=== PATIENT | female | born 1980 | race Caucasian/White ===

== ENCOUNTER 2017-01-17 19:55 | Emergency (ER) | payer SELFPAY ==
[~2017-01-17] VITALS: Ht 165.1 cm; Wt 83.0 kg
[~2017-01-17 19:55] MED LIST: NITR100C62 PO
[2017-01-17 20:27] LABS: BILIRUBIN,URINE NEGATIVE (NEG); GLUCOSE,URINE NEGATIVE (NEG); NITRITE,URINE NEGATIVE (NEG); PH,URINE 6.5; PROTEIN,URINE NEGATIVE (NEG-TRACE)
[2017-01-17] MEDS ORDERED: ONDANSETRON ODT 4 MG TAB.RAPDIS. PO ONE (20:30)
--- NOTE | 2017-01-17 20:35 | PHYS DOC ---
Past Medical History Past Medical History: No Pertinent History Past Surgical History: Alcohol Use: None Drug Use: None Adult General Chief Complaint Chief Complaint: ABDOMINAL PAIN HPI HPI Patient is a 36 year old female with history of UTIs and kidney infection who presents today with mild left flank pain radiating to the left lower abdomen that began yesterday. Patient is also complaining of nausea with no vomiting. Denies any fever. Review of Systems Review of Systems Constitutional: Denies fever or chills [] Eyes: Denies change in visual acuity, redness, or eye pain [] HENT: Denies nasal congestion or sore throat [] Respiratory: Denies cough or shortness of breath [] Cardiovascular: No additional information not addressed in HPI [] GI: Reports nausea, denies vomiting, bloody stools or diarrhea [] : Left flank pain radiating to the left abdomen. Musculoskeletal: Denies back pain or joint pain [] Integument: Denies rash or skin lesions [] Neurologic: Denies headache, focal weakness or sensory changes [] All other systems were reviewed and found to be within normal limits, except as documented in this note. Current Medications Current Medications Current Medications Medications (Trade) Dose Ordered Sig/[place] Start Time Stop Time Status Last Admin Dose Admin Acetaminophen (Tylenol) 650 mg 1X ONCE 01/17/17 21:30 01/17/17 21:31 DC 01/17/17 21:44 650 MG Ondansetron HCl (Zofran Odt) 4 mg 1X ONCE 01/17/17 20:30 01/17/17 20:31 DC 01/17/17 20:40 4 MG Allergies Allergies Allergies Coded Allergies Type Severity Reaction Last Updated Verified naproxen Allergy Intermediate 06/30/15 Yes Physical Exam Physical Exam Constitutional: Well developed, well nourished, no acute distress, non-toxic appearance. [] HENT: Normocephalic, atraumatic, bilateral external ears normal, oropharynx moist, no oral exudates, nose normal. [] Eyes: PERRLA, EOMI, conjunctiva normal, no discharge. [] Neck: Normal range of motion, no tenderness, supple, no stridor. [] Cardiovascular:Heart rate regular rhythm, no murmur [] Lungs & Thorax: Bilateral breath sounds clear to auscultation [] Abdomen: Bowel sounds normal, soft, no tenderness, no masses, no pulsatile masses. [] Skin: Warm, dry, no erythema, no rash. [] Back: No tenderness, no CVA tenderness. [] Extremities: No tenderness, no cyanosis, no clubbing, ROM intact, no edema. [] Neurologic: Alert and oriented X 3, normal motor function, normal sensory function, no focal deficits noted. [] Psychologic: Affect normal, judgement normal, mood normal. [] Current Patient Data Vital Signs Vital Signs Date Time Temp Pulse Resp B/P (MAP) Pulse Ox O2 Delivery O2 Flow Rate FiO2 01/17/17 20:10 98.0 86 16 136/65 (88) 97 Room Air 98.0 Lab Values Laboratory Tests Test 01/17/17 20:08 01/17/17 20:12 Urine Collection Type Unknown Urine Color Yellow Urine Clarity Cloudy Urine pH 6.5 Urine Specific [place] >=1.030 Urine Protein Negative mg/dL (NEG-TRACE) Urine Glucose (UA) Negative mg/dL (NEG) Urine Ketones (Stick) 15 mg/dL (NEG) Urine Blood Negative (NEG) Urine Nitrite Negative (NEG) Urine Bilirubin Negative (NEG) Urine Urobilinogen Dipstick 1.0 mg/dL (0.2 mg/dL) Urine Leukocyte Esterase Trace (NEG) Urine RBC Rare /HPF (0-2) Urine WBC Occ /HPF (0-4) Urine Squamous Epithelial Cells Many /LPF Urine Bacteria Many /HPF (0-FEW) Urine Mucus Marked /LPF POC Urine HCG, Qualitative Hcg negative (Negative) EKG EKG [] Radiology/Procedures Radiology/Procedures []PROCEDURE: CT ABDOMEN PELVIS WO CONTRAST CT ABDOMEN PELVIS WO CONTRAST dated 01/17/2017 9:40 PM Indication:..severe left flank pain x 2 days, no priors. Comparison: No comparison is available. Technique: Contiguous axial imaging of the abdomen and pelvis performed without the administration of IV or oral contrast. One or more of the following individualized dose reduction techniques were utilized for this examination: 1. Automated exposure control 2. Adjustment of the mA and/or kV according to patient size 3. Use of iterative reconstruction technique Findings: Limited images of lung bases show patchy increased density in the right lower lobe posterior medially on image 1. Heart size within normal limits. No pleural or pericardial effusion. Solid abdominal viscera not well evaluated in the absence of contrast material. No apparent attenuation abnormality of the liver or spleen. Pancreas, adrenal glands, gallbladder and kidneys are unremarkable. No stone or hydronephrosis. Unopacified GI tract is normal in caliber and contour. No focal bowel wall thickening. No inflammatory changes in the mesentery. The appendix is not clearly identified. No ascites or lymphadenopathy. Images of pelvis show nondistended urinary bladder. Uterus and adnexa are unremarkable. Trace amount of free pelvic fluid. No pelvic lymphadenopathy. Bone windows show no acute findings. IMPRESSION: 1. No acute abnormality of abdomen or pelvis. No renal stone or hydronephrosis. 2. Trace amount of free pelvic fluid, nonspecific. 3. Mild patchy opacity at the posterior medial right lung base, atelectasis versus early pneumonia. Electronically signed by: Ander Albrecht MD (01/17/2017 10:00 PM) [facility] DICTATED and SIGNED BY: ANDER ALBRECHT MD DATE: 01/17/172156 CC: TASHA MONZON BANDMILL OPERATOR; NO PCP ~ Course & Med Decision Making Course & Med Decision Making Pertinent Labs and Imaging studies reviewed. (See chart for details) Patient is in the ED with left flank pain radiating to the left abdomen, she has history of kidney infection and UTI. Urine with trace amount of leukocytes and it appears contaminated. CT of the abdomen and pelvic is noted for possible right middle lobe pneumonia otherwise no acute findings. Spoke to patient about results. She states she's also been coughing. She is currently breast-feeding. She was discharged on Augmentin. Instructed to follow-up with PCP in 1-2 weeks. Dragotdd Disclaimer Dragtodd Disclaimer This electronic medical record was generated, in whole or in part, using a voice recognition dictation system. Departure Departure Impression: Primary Impression: Community acquired pneumonia Additional Impression: Abdominal pain Disposition: HOME, SELF-CARE Condition: STABLE Referrals: NO PCP (PCP) Follow-up in one to 7 days Patient Instructions: Abdominal Pain (Nonspecific), Pneumonia, Adult Additional Instructions: Your CT of the abdomen and pelvic shows you could have right middle lobe pneumonia. We put you on antibiotics. Ensure you complete them. Follow-up with your own primary care doctor in 1-2 weeks. Take Tylenol or Motrin as needed for pain. Scripts Amoxicillin/Potassium Clav (AUGMENTIN 875-125 TABLET) 1 Each Tablet 1 TAB PO BID, #20 TAB Prov: MUTUNGA,TASHA BANDMILL OPERATOR 01/17/17 Problem Qualifiers Primary Impression: Community acquired pneumonia Laterality: right Lung location: middle lobe of lung Qualified Codes: J18.1 - Lobar pneumonia, unspecified organism Additional Impression: Abdominal pain Abdominal location: left upper quadrant Qualified Codes: R10.12 - Left upper quadrant pain YOVANITASHA MILLS BANDMILL OPERATOR Jan 17, 2017 20:35
[2017-01-17 20:40] LABS: BACTERIA,URINE MANY /HPF (0-FEW); RBC,URINE RARE /HPF (0-2); SQUAMOUS EPITHELIAL CELL,UR MANY /LPF; WBC,URINE OCC /HPF (0-4)
[2017-01-17] MEDS ORDERED: ACETAMINOPHEN 325 MG TABLET. PO ONE (21:30)
--- NOTE | 2017-01-17 22:03 | RAD ---
CT ABDOMEN PELVIS WO CONTRAST dated 01/17/2017 9:40 PM Indication:..severe left flank pain x 2 days, no priors. Comparison: No comparison is available. Technique: Contiguous axial imaging of the abdomen and pelvis performed without the administration of IV or oral contrast. One or more of the following individualized dose reduction techniques were utilized for this examination: 1. Automated exposure control 2. Adjustment of the mA and/or kV according to patient size 3. Use of iterative reconstruction technique Findings: Limited images of lung bases show patchy increased density in the right lower lobe posterior medially on image 1. Heart size within normal limits. No pleural or pericardial effusion. Solid abdominal viscera not well evaluated in the absence of contrast material. No apparent attenuation abnormality of the liver or spleen. Pancreas, adrenal glands, gallbladder and kidneys are unremarkable. No stone or hydronephrosis. Unopacified GI tract is normal in caliber and contour. No focal bowel wall thickening. No inflammatory changes in the mesentery. The appendix is not clearly identified. No ascites or lymphadenopathy. Images of pelvis show nondistended urinary bladder. Uterus and adnexa are unremarkable. Trace amount of free pelvic fluid. No pelvic lymphadenopathy. Bone windows show no acute findings. IMPRESSION: 1. No acute abnormality of abdomen or pelvis. No renal stone or hydronephrosis. 2. Trace amount of free pelvic fluid, nonspecific. 3. Mild patchy opacity at the posterior medial right lung base, atelectasis versus early pneumonia. Electronically signed by: Ander Albrecht MD (01/17/2017 10:00 PM) [facility]
[2017-01-17] MEDS ORDERED: AMOX1TAB61 PO (22:29)
[2017-01-17 23:00] VITALS: BP 112/70
== END 2017-01-17 23:01 | disposition home or self-care (01) ==
LOC: ER 19:55
DX: R10.12 Left upper quadrant pain (principal); J18.1 Lobar pneumonia, unspecified organism; Z88.6 Allergy status to analgesic agent
CPT/HCPCS: 74176; 81001; 81025; 99285; Q0162